=== PATIENT | female | born 2000 | race Caucasian/White ===

== ENCOUNTER → 2020-06-26 17:44 | Outpatient (CLI) | payer OTHER, SELFPAY ==
[2019-12-27 12:47] VITALS: BMI 29.6
== END ==
PROVIDERS: PCP Family Medicine; Referring Provider Family Medicine; Visit Provider Family Medicine
DX: Z20.828 Contact with and (suspected) exposure to other viral communicable diseases (principal)
CPT/HCPCS: 87635; 94799; U0003

== ENCOUNTER → 2022-05-27 | Outpatient (CLI) | payer OTHER, SELFPAY ==
[2022-05-28 22:06] LABS: Chlamydia By Nucleic Acid AMP Negative (Negative)
[2022-05-29 10:44] LABS: Gonococcus By Nucleic Acid AMP Negative (Negative)
[2022-05-29 12:26] LABS: HPV Reflexed? NOT INDICATED
== END | disposition home or self-care (01) ==
PROVIDERS: PCP Family Medicine; Referring Provider Nurse Practitioner Women's Health; Visit Provider Nurse Practitioner Women's Health
DX: Z12.4 Encounter for screening for malignant neoplasm of cervix (principal); Z11.3 Encounter for screening for infections with a predominantly sexual mode of transmission
CPT/HCPCS: 87491; 87591; 88175; G0145

== ENCOUNTER → 2022-10-31 | Outpatient (CLI) | payer OTHER, SELFPAY ==
--- NOTE | 2022-10-31 15:27 | US_ITS ---
INDICATION: DYSMENORRHea EXAMINATION: Ultrasound US Pelvis Non OB Complete With Transvaginal Imaging TECHNIQUE: Transabdominal and transvaginal pelvic ultrasound was performed. Grayscale, spectral waveform, and color flow Doppler evaluation of the adnexa. COMPARISON: None. FINDINGS: UTERUS: Anteverted. The uterus measures 7.7 x 4.8 x 2.5 cm. There is no uterine mass. The endometrial stripe measures 9 mm in AP diameter which is within normal limits. RIGHT OVARY: Measures 2.8 x 2.1 x 1.3 cm. Non-enlarged, normal echogenicity. There is normal arterial inflow and venous outflow present in the right ovary. LEFT OVARY: Measures 5.2 x 3.9 x 3.4 cm. Non-enlarged, normal echogenicity. There is normal arterial inflow and venous outflow present in the left ovary. Well-circumscribed anechoic 3.5 cm cyst in the left ovary. FREE FLUID: None. US/Pelvic (Non ) IMPRESSION: Normal pelvic ultrasound. Electronically Signed: Ryan Valladares MD at 16:45 EST ,
== END | disposition home or self-care (01) ==
LOC: US 15:26
PROVIDERS: PCP Family Medicine; Referring Provider Nurse Practitioner Women's Health; Visit Provider Nurse Practitioner Women's Health
DX: N94.6 Dysmenorrhea, unspecified (principal)
CPT/HCPCS: 76830; 76856

== ENCOUNTER → 2022-11-14 | Outpatient (CLI) | payer OTHER, SELFPAY | END | disposition home or self-care (01) | LOC: LAB 10:01 | PROVIDERS: PCP Family Medicine; Referring Provider Nurse Practitioner Women's Health; Visit Provider Nurse Practitioner Women's Health | DX: Z31.41 Encounter for fertility testing (principal) | CPT/HCPCS: 36415 ==

== ENCOUNTER → 2022-12-02 | Outpatient (CLI) | payer OTHER, SELFPAY ==
[2022-12-02 11:07] LABS: Progesterone Level 2.01 ng/mL (See Comment)
== END | disposition home or self-care (01) ==
LOC: LAB 09:24
PROVIDERS: PCP Family Medicine; Referring Provider Nurse Practitioner Women's Health; Visit Provider Nurse Practitioner Women's Health
DX: N97.0 Female infertility associated with anovulation (principal)
CPT/HCPCS: 36415; 84144

== ENCOUNTER → 2023-01-16 | Outpatient (CLI) | payer OTHER, SELFPAY ==
[2023-01-16 15:50] LABS: ALB/GLOB Ratio 1.2 RATIO (0.9-2.4); AST(SGOT) 22 U/L (15-37); Alanine Aminotransfer ALT/SGPT 29 U/L (13-56); Alkaline Phosphatase 122 U/L (45-117); Anion Gap 8 (5-15); BUN 13 mg/dL (7-18); BUN/Creat Ratio 15.7 RATIO (10-20); Calcium,Total 9.4 mg/dL (8.5-10.1); Chloride 106 mmol/L (98-107); Creatinine, Serum 0.83 mg/dL (0.55-1.02); EST Glomerular Filtration Rate 91 mL/min (>60); Est Glom Filt Rate - Afr Amer 110 mL/min (>60); Globulin 3.4 g/dL (2.2-4.2); Glucose 68 mg/dL (74-106); Potassium 3.8 mmol/L (3.5-5.1); Protein, Total 7.4 g/dL (6.4-8.2); Sodium Level 140 mmol/L (136-145)
[2023-01-16 16:10] LABS: HIV - WCH Non-Reactive (Nonreactive); Hepatitis B Surface Antigen Non-Reactive (Nonreactive); Rubella IgG Reactive (Nonreactive); Syphilis Antibodies Non-reactive
[2023-01-16 17:15] LABS: Chlamydia Trachomatis by PCR Negative (Negative); Neisserai gonorrhoeae by PCR Negative (Negative); Probe Check PASS; Sample Adequacy Control PASS; Specimen Processing Control PASS
[2023-01-27 14:30] LABS: 17-Hydroxyprogesterone 22 ng/dL (.)
== END | disposition home or self-care (01) ==
LOC: LAB 14:21
PROVIDERS: PCP Family Medicine; Referring Provider Obstetrics & Gynecology Reproductive Endocrinology; Visit Provider Obstetrics & Gynecology Reproductive Endocrinology
DX: Z31.41 Encounter for fertility testing (principal); E28.1 Androgen excess; R73.9 Hyperglycemia, unspecified
CPT/HCPCS: 36415; 80053; 82627; 83498; 84403; 84443; 86703; 86762; 86780; 86787; 86803; 86804; 86850; 86900; 86901; 87340; 87491; 87591; 82626

== ENCOUNTER → 2023-01-23 | Outpatient (CLI) | payer OTHER, SELFPAY ==
[2023-01-23 08:36] LABS: Glucose 75GTT - Fasting 110 mg/dL (70-99)
[2023-01-23 08:41] LABS: Glucose 75GTT - 30 minutes 225 mg/dL (100-160)
[2023-01-23 08:46] LABS: Insulin 75GTT - 30 MIN 223.5 mU/L (Not Estab.)
[2023-01-23 08:46] LABS: Insulin 75GTT - Fasting 23.9 mU/L (2.6-37.6)
[2023-01-23 09:39] LABS: Glucose 75GTT - 60 minutes 124 mg/dL (100-160)
[2023-01-23 09:47] LABS: Insulin 75GTT - 60 min 128.6 mU/L (Not Estab)
[2023-01-23 10:10] LABS: Glucose 75GTT - 120 minutes 110 mg/dL (70-140)
[2023-01-23 10:18] LABS: Insulin 75GTT - 120 min 80.8 mU/L (Not Estab.)
== END | disposition home or self-care (01) ==
LOC: LAB 07:05
PROVIDERS: PCP Family Medicine; Referring Provider Obstetrics & Gynecology Reproductive Endocrinology; Visit Provider Obstetrics & Gynecology Reproductive Endocrinology
DX: R73.9 Hyperglycemia, unspecified (principal); E16.8 Other specified disorders of pancreatic internal secretion
CPT/HCPCS: 36415; 82951; 82952; 83525

== ENCOUNTER → 2023-12-04 | Outpatient (CLI) | payer BC, SELFPAY ==
[2023-12-04 09:37] LABS: Insulin 24.8 mU/L (2.6-37.6)
[2023-12-04 09:47] LABS: ALB/GLOB Ratio 1.1 RATIO (0.9-2.4); AST(SGOT) 17 U/L (15-37); Alanine Aminotransfer ALT/SGPT 31 U/L (13-56); Albumin, Serum 3.9 g/dL (3.2-5.0); Alkaline Phosphatase 134 U/L (45-117); Anion Gap 5 (5-15); BUN 11 mg/dL (7-18); BUN/Creat Ratio 13.8 RATIO (10-20); Calcium,Total 9.6 mg/dL (8.5-10.1); Chloride 108 mmol/L (98-107); EST Glomerular Filtration Rate 94 mL/min (>60); Est Glom Filt Rate - Afr Amer 113 mL/min (>60); Free T3 2.6 pg/mL (2.18-3.98); Globulin 3.7 g/dL (2.2-4.2); Glucose 101 mg/dL (74-106); Potassium 3.9 mmol/L (3.5-5.1); Protein, Total 7.6 g/dL (6.4-8.2); Sodium Level 136 mmol/L (136-145)
[2023-12-04 10:48] LABS: Hemoglobin A1c 5.1 % (3.8-5.6)
== END | disposition home or self-care (01) ==
PROVIDERS: PCP Family Medicine; Referring Provider Family Medicine; Visit Provider Family Medicine
DX: E03.9 Hypothyroidism, unspecified (principal); E88.819 Insulin resistance, unspecified; E28.2 Polycystic ovarian syndrome
CPT/HCPCS: 36415; 80053; 83036; 83525; 84402; 84403; 84439; 84443; 84481; 86376; 86800

== ENCOUNTER → 2024-02-10 | Outpatient (CLI) | payer BC, SELFPAY ==
[2024-02-10 13:57] LABS: hCG Titer Quant., Serum 42 mIU/mL (1-3)
== END | disposition home or self-care (01) ==
LOC: LAB 07:06
PROVIDERS: PCP Family Medicine; Referring Provider Nurse Practitioner Women's Health; Visit Provider Nurse Practitioner Women's Health
DX: Z34.90 Encounter for supervision of normal pregnancy, unspecified, unspecified trimester (principal)
CPT/HCPCS: 36415; 84702

== ENCOUNTER → 2024-02-12 | Outpatient (CLI) | payer BC, SELFPAY ==
[2024-02-12 08:54] LABS: hCG Titer Quant., Serum 74 mIU/mL (1-3)
== END | disposition home or self-care (01) ==
LOC: LAB 07:41
PROVIDERS: PCP Family Medicine; Referring Provider Nurse Practitioner Women's Health; Visit Provider Nurse Practitioner Women's Health
DX: Z34.90 Encounter for supervision of normal pregnancy, unspecified, unspecified trimester (principal)
CPT/HCPCS: 36415; 84702

== ENCOUNTER → 2024-02-16 | Outpatient (CLI) | payer BC, SELFPAY ==
[2024-02-16 09:23] LABS: hCG Titer Quant., Serum 320 mIU/mL (1-3)
== END | disposition home or self-care (01) ==
LOC: LAB 07:26
PROVIDERS: PCP Family Medicine; Referring Provider Nurse Practitioner Women's Health; Visit Provider Nurse Practitioner Women's Health
DX: Z34.90 Encounter for supervision of normal pregnancy, unspecified, unspecified trimester (principal)
CPT/HCPCS: 36415; 84702

== ENCOUNTER → 2024-02-23 | Outpatient (CLI) | payer BC, SELFPAY ==
[2024-02-23 09:24] LABS: hCG Titer Quant., Serum 4238 mIU/mL (1-3)
== END | disposition home or self-care (01) ==
PROVIDERS: PCP Family Medicine; Referring Provider Nurse Practitioner Women's Health; Visit Provider Nurse Practitioner Women's Health
DX: O36.80X0 Pregnancy with inconclusive fetal viability, not applicable or unspecified (principal); Z3A.00 Weeks of gestation of pregnancy not specified
CPT/HCPCS: 36415; 84702

== ENCOUNTER 2024-03-05 10:37 | Emergency (ER) | payer BC, SELFPAY ==
[2024-03-05 10:38] VITALS: BP 160/101; PULSE 83; RESP 14; O2SAT 97
[2024-03-05 10:39] VITALS: BP 159/100; PULSE 87; RESP 14; TEMP 36.1; O2SAT 100; BMI 47.2
--- NOTE | 2024-03-05 10:58 | US_ITS ---
STUDY: FIRST TRIMESTER OBSTETRICAL ULTRASOUND REASON FOR EXAM: Female, 23 years old L pelvic pain, vag bleeding LMP: TECHNIQUE: Transvaginal TECHNICAL QUALITY: Adequate. PRIOR ULTRASOUND: None. FINDINGS: There is visualization of a single gestational sac in a normal intrauterine position. The mean sac diameter (MSD) measures 1.66 cm, indicating an estimated gestational age (EGA) of 6 weeks, 4 days. The gestational sac shape is within normal limits. There is a visualized yolk sac. The yolk sac measures 2.9 mm. The placenta is non-visualized. There is visualization of a live embryo. The crown-rump length (CRL) measures 8.5 mm, indicating an estimated gestational age (EGA) of 6 weeks, 6 days. There is demonstrated cardiac activity with a heart rate of 144 bpm. The estimated gestation age (EGA) by LMP is 7 weeks, 6 days. The estimated date of delivery (ANTHONY) by LMP is October 16, 2024. The estimated gestation age (EGA) by US is 6 weeks, 5 days. The estimated date of delivery (ANTHONY) by US is October 24, 2024. The uterus measures 8.8 x 5.1 x 4.4 cm. There is no demonstrated uterine fibroid. The cervix is closed. Normal right ovary is not visualized. There is no adnexal mass. The left ovary measures 3.1 x 2.2 x 1.8 cm. There is a cyst measuring 1.9 x 2 x 1.9 cm likely corpus luteum. There is no visualized left adnexal mass or complex lesion. There is minimal fluid in the cul de sac. US/Transvaginal w/Preg US IMPRESSION: Viable intrauterine gestation approximately 7 weeks gestational age. Small left ovarian cyst likely corpus luteum Electronically Signed: Vivek Lamar MD at 16:28 EDT Reading Location ID and State: [id number] / [place] Tel , Service support ,
--- NOTE | 2024-03-05 10:59 | EDS_ITS ---
HPI HPI - Female History of Present Illness Chief Complaint: Vag Bld, Preg Informant: patient Bleeding Issue: Positive for Vaginal bleeding Onset: Today Current Severity: Spotting Associated Symptoms Associated Symptoms: Negative for Dysuria, Frequency or Urgency Last known menstrual period: 01/10/24 Test: Positive P: 0 Narrative Narrative: 23-year-old female early in started having left pelvic cramping and vaginal spotting today. No syncope, fevers or chills, urinary symptoms, or other symptoms. No recent injuries. Has not had an ultrasound yet. She did have some left-sided pelvic cramping several weeks ago, she saw Candice Stewart in OB who did a couple of hCG measurements and then the cramping went away according to the patient. PFSH PFSH Medical History Bloody stool External hemorrhoid no medical history Home Medications cetirizine 10 mg tablet (Zyrtec) 10 mg PO DAILY 12/27/19 [History Last Taken Unknown] sertraline 50 mg tablet (Zoloft) 75 mg PO DAILY 05/27/22 [History Last Taken Unknown] Allergy/AdvReac Type Severity Reaction Status Date / Time No Known Allergies Allergy Verified 03/05/24 10:38 Family History Other Anxiety Breast cancer Depression Surgical History History of eye surgery History of tonsillectomy Social History household members: spouse current occupational status: employed current occupation: [employer] Smoking Status: Never smoker alcohol intake: current alcohol intake frequency: a few times a week substance use type: does not use what type of physical activity do you participate in: walking frequency: 1-2 times per week seatbelt use: always do you feel safe at home: Yes additional social history: - [place] PEÑA ROS ED Constitutional Constitutional ED: Denies chills or fever(s) Eyes Eyes: Denies change in vision or diplopia ENT ENT ED: Denies rhinorrhea or sore throat Cardiovascular Cardiovascular: Denies chest pain or palpitations Respiratory/Chest Respiratory/Chest: Denies cough or dyspnea Gastrointestinal Gastrointestinal: Reports abdominal pain; Denies diarrhea, nausea or vomiting Genitourinary Genitourinary ED: Reports as per HPI; Denies dysuria or hematuria Musculoskeletal Musculoskeletal: Denies back pain or neck pain Integumentary Denies abscess or rash Neurologic Neurologic: Denies headache(s), paresthesias or weakness Psychiatric Psychiatric: Denies anxiety or suicidal thoughts EXAM Physical Exam Const Vital Signs: 03/05/24 10:38 03/05/24 10:39 03/05/24 12:38 Temperature 97 F L 98.5 F Temperature Source Temporal Temporal Pulse Rate 83 87 64 Respiratory Rate 14 14 18 Blood Pressure 160/101 H 159/100 H 128/76 H Blood Pressure Mean 120 119 93 Pulse Ox 97 100 98 Oxygen Delivery Method Room Air Room Air Room Air 03/05/24 14:00 03/05/24 15:30 Temperature 98.2 F Temperature Source Pulse Rate 81 79 Respiratory Rate 14 17 Blood Pressure 131/76 H 122/81 H Blood Pressure Mean 94 94 Pulse Ox 98 97 Oxygen Delivery Method Room Air Positive well nourished and well developed General Appearance ED: well developed and NAD HEENT Reports moist mucous membranes normocephalic and atraumatic Eyes PERRL and EOMs intact bilaterally Neck full ROM and supple Resp normal respiratory effort and clear to auscultation bilaterally Cardio regular rate, regular rhythm and no murmurs GI non-distended GI Narrative: Mildly tender left lower quadrant. No guarding or rebound. Auscultation: normoactive bowel sounds Palpation: soft Back/Spine no CVA tenderness General Back: other FROM Extremity normal to inspection General Extremety ED: Negative for edema, pulses abnormal or tenderness General Extremity: Negative for edema or pulses abnormal Neuro oriented x3, CN's II-XII intact bilaterally and no sensory deficits noted Sensorium / Orientation: awake and alert Motor Exam: strength 5/5 throughout Skin no rashes or lesions noted and no wounds MDM MDM MDM Narrative Medical decision making narrative: Reviewing old records, patient has a previously documented blood type O+, so RhoGAM not indicated. I did a bedside ultrasound. It appears that her uterus is off to the left. However, there is artifact from the edge of the bladder in this area, so I am not able to definitively see this gestational sac or pole. For this reason a quantitative hCG and an official transvaginal ultrasound will be obtained. Quantitative hCG is almost 32,000, transvaginal ultrasound shows single live intrauterine heart tones 144, measuring consistent with dates. Reassured, given appropriate discharge instructions to follow-up with her OB. She was offered Tylenol and declined. History & Record Review Additional record(s) reviewed:: Prior labs Lab Data Attestation: I reviewed the patient's lab results. Labs: Laboratory Results - last 24 hr 03/05/24 11:05 HCG, Quant [id number] H Radiography Diagnostic Testing: Clinical Impression(s) from Imaging Studies Obstetrics Ultrasound 03/05/24 10:58 IMPRESSION: Viable intrauterine gestation approximately 7 weeks gestational age. Small left ovarian cyst likely corpus luteum Electronically Signed: Vivek Lamar MD at 16:28 EDT , Discharge Plan Triage Chief Complaint: Vag Bld, Preg ED Provider: Alban Morrissey Dx/Rx/DC Orders Clinical Impression: , threatened, antepartum Instructions: Miscarriage Threatened Prescriptions: No Action cetirizine [Zyrtec] 10 mg tablet 10 mg PO DAILY sertraline [Zoloft] 50 mg tablet 75 mg PO DAILY Stand Alone Forms: ED Work / School Excuse Primary Care Provider: Meagan Whalen Referrals: eMagan Whalen DO [Primary Care Provider] - Candice Stewart NP, [facility] [Med Staff - Adv Practice Prof] - As soon as possible (call for available appt) Disposition Disposition: Home, Self Care Discharge Date/Time: 03/05/24 15:30
[2024-03-05 11:52] LABS: hCG Titer Quant., Serum 31565 mIU/mL (1-3)
[2024-03-05 12:38] VITALS: BP 128/76; PULSE 64; RESP 18; TEMP 36.9; O2SAT 98
[2024-03-05 14:00] VITALS: BP 131/76; PULSE 81; RESP 14; O2SAT 98
[2024-03-05 15:30] VITALS: BP 122/81; PULSE 79; RESP 17; TEMP 36.8; O2SAT 97
== END 2024-03-05 15:30 | disposition home or self-care (01) ==
PROVIDERS: Emergency Provider Emergency Medicine; PCP Family Medicine; Visit Provider Emergency Medicine
DX: O20.0 Threatened abortion (principal); Z3A.01 Less than 8 weeks gestation of pregnancy
CPT/HCPCS: 76817; 84702; 99282; A4216

== ENCOUNTER → 2024-03-15 | Outpatient (CLI) | payer BC, SELFPAY ==
[2024-03-18 06:09] LABS: Chlamydia By Nucleic Acid AMP Negative (Negative); Gonococcus By Nucleic Acid AMP Negative (Negative)
== END | disposition home or self-care (01) ==
LOC: LABSPEC 14:58
PROVIDERS: PCP Family Medicine; Referring Provider Advanced Practice Midwife; Visit Provider Advanced Practice Midwife
DX: O99.210 Obesity complicating pregnancy, unspecified trimester (principal); E66.01 Morbid (severe) obesity due to excess calories; Z68.41 Body mass index [BMI] 40.0-44.9, adult; Z3A.00 Weeks of gestation of pregnancy not specified
CPT/HCPCS: 87086; 87088; 87491; 87591

== ENCOUNTER → 2024-03-26 | Outpatient (CLI) | payer BC, SELFPAY | END | disposition home or self-care (01) | LOC: LAB 10:43 | PROVIDERS: PCP Family Medicine; Visit Provider Advanced Practice Midwife | DX: Z34.81 Encounter for supervision of other normal pregnancy, first trimester (principal) | CPT/HCPCS: 36415 ==

== ENCOUNTER → 2024-04-09 | Outpatient (CLI) | payer BC, SELFPAY ==
[2024-04-09 11:53] LABS: Absolute Lymphocyte Count 1.22 X10^3/uL (0.83-4.51); Absolute Neutrophil Count 5.4 X10^3/uL (2.0-7.7); Basophil# 0.02 X10^3/uL; Basophil% 0.3 % (0-1); Eosinophil# 0.04 X10^3/uL; Eosinophils% 0.6 % (0-5); Hematocrit 37.2 % (37-47); Hemoglobin 12.6 g/dL (12.0-15.0); Lymphocyte # 1.22 X10^3/ul (0.83-4.51); Lymphocyte % 17.6 % (19-41); Mean Corp Hgb Conc 33.9 g/dL (32-36); Mean Corpuscular Hgb 29.3 pg (27.0-32.0); Mean Corpuscular Volume 86.5 fL (81-99); Mean Platelet Vol. 10.2 fl (6.2-12.0); Monocyte# 0.26 X10^3/uL; Monocyte% 3.8 % (0-10); NRBC Flagged by Analyzer 0 % (0-5); Neutrophil # 5.36 X10^3/uL (2.7-7.7); Neutrophil % 77.3 % (47-70); Platelet Count 295 K/mm3 (150-450); RBC Distribution Width CV 12.7 % (11.6-14.6); RBC Distribution Width SD 39.5 fl (35.1-43.9); White Blood Count 6.9 K/mm3 (4.4-11.0)
[2024-04-09 12:10] LABS: Glucose Challenge Gest 1H 50g 174 mg/dL (70-140)
[2024-04-09 12:52] LABS: HIV - WCH Non-Reactive (Nonreactive); Hepatitis B Surface Antigen Non-Reactive (Nonreactive); Hepatitis C Antibody Non-Reactive (Nonreactive); Rubella IgG Reactive (Nonreactive); Syphilis Antibodies Non-reactive
== END | disposition home or self-care (01) ==
LOC: LAB 10:21
PROVIDERS: PCP Family Medicine; Referring Provider Advanced Practice Midwife; Visit Provider Advanced Practice Midwife
DX: O99.210 Obesity complicating pregnancy, unspecified trimester (principal); E66.01 Morbid (severe) obesity due to excess calories; Z68.41 Body mass index [BMI] 40.0-44.9, adult; Z3A.00 Weeks of gestation of pregnancy not specified
CPT/HCPCS: 36415; 82950; 83036; 85025; 86703; 86762; 86780; 86803; 86850; 86900; 86901; 87340

== ENCOUNTER → 2024-04-16 | Outpatient (CLI) | payer BC, SELFPAY ==
[2024-04-16 08:29] LABS: Glucose GTT-Gestation. Fasting 98 mg/dL (<105)
[2024-04-16 09:13] LABS: Glucose GTT-Gestational 1 Hr 118 mg/dL (<190)
[2024-04-16 10:08] LABS: Glucose GTT-Gestational 2 Hr 97 mg/dL (<165)
[2024-04-16 11:22] LABS: Glucose GTT-Gestational 3 Hr 62 L (<145)
== END | disposition home or self-care (01) ==
PROVIDERS: PCP Family Medicine; Referring Provider Advanced Practice Midwife; Visit Provider Advanced Practice Midwife
DX: O99.810 Abnormal glucose complicating pregnancy (principal); Z3A.00 Weeks of gestation of pregnancy not specified
CPT/HCPCS: 82951; 82952

== ENCOUNTER → 2024-05-21 | Outpatient (CLI) | payer BC, SELFPAY | END | disposition home or self-care (01) | LOC: LABSPEC 16:38 | PROVIDERS: PCP Family Medicine; Referring Provider Registered Nurse; Visit Provider Registered Nurse | DX: O99.891 Other specified diseases and conditions complicating pregnancy (principal); R30.0 Dysuria; Z3A.18 18 weeks gestation of pregnancy | CPT/HCPCS: 87077; 87086; 87088; 87186 ==

== ENCOUNTER → 2024-05-31 | Outpatient (CLI) | payer BC, SELFPAY | END | disposition home or self-care (01) | PROVIDERS: PCP Family Medicine | DX: O28.0 Abnormal hematological finding on antenatal screening of mother (principal); Z36.3 Encounter for antenatal screening for malformations; Z3A.00 Weeks of gestation of pregnancy not specified | CPT/HCPCS: 36415 ==

== ENCOUNTER → 2024-07-28 | Outpatient (CLI) | payer BC, SELFPAY ==
[2024-07-28 09:40] LABS: Bedside Glucose 93 mg/dL (74-106)
[2024-07-28 10:15] LABS: Glucose GTT-Gestation. Fasting 96 mg/dL (<105)
[2024-07-28 10:56] LABS: Absolute Lymphocyte Count 1.31 X10^3/uL (0.83-4.51); Absolute Neutrophil Count 5.9 X10^3/uL (2.0-7.7); Basophil# 0.03 X10^3/uL; Basophil% 0.4 % (0-1); Eosinophil# 0.04 X10^3/uL; Eosinophils% 0.5 % (0-5); Hematocrit 34.2 % (37-47); Hemoglobin 11.8 g/dL (12.0-15.0); Lymphocyte # 1.31 X10^3/ul (0.83-4.51); Lymphocyte % 16.8 % (19-41); Mean Corp Hgb Conc 34.5 g/dL (32-36); Mean Corpuscular Hgb 30.6 pg (27.0-32.0); Mean Corpuscular Volume 88.6 fL (81-99); Mean Platelet Vol. 10.1 fl (6.2-12.0); Monocyte# 0.43 X10^3/uL; Monocyte% 5.5 % (0-10); NRBC Flagged by Analyzer 0 % (0-5); Neutrophil % 75.8 % (47-70); Platelet Count 280 K/mm3 (150-450); RBC Distribution Width CV 12.4 % (11.6-14.6); Red Blood Count 3.86 M/mm3 (4.2-5.4); White Blood Count 7.8 K/mm3 (4.4-11.0)
[2024-07-28 11:18] LABS: Glucose GTT-Gestational 1 Hr 132 mg/dL (<190)
[2024-07-28 11:52] LABS: HIV - WCH Non-Reactive (Nonreactive); Syphilis Antibodies Non-reactive
[2024-07-28 12:13] LABS: Glucose GTT-Gestational 2 Hr 110 mg/dL (<165)
[2024-07-28 13:35] LABS: Glucose GTT-Gestational 3 Hr 61 L (<145)
== END | disposition home or self-care (01) ==
LOC: LAB 09:07
PROVIDERS: PCP Family Medicine; Referring Provider Obstetrics & Gynecology; Visit Provider Obstetrics & Gynecology
DX: O09.92 Supervision of high risk pregnancy, unspecified, second trimester (principal); Z3A.00 Weeks of gestation of pregnancy not specified; Z13.1 Encounter for screening for diabetes mellitus
CPT/HCPCS: 36415; 82951; 82952; 82962; 85025; 86703; 86780

== ENCOUNTER → 2024-09-15 | Outpatient (CLI) | payer BC, SELFPAY ==
--- NOTE | 2024-09-15 13:25 | US_ITS ---
STUDY: OBSTETRICAL ULTRASOUND - BIOPHYSICAL PROFILE REASON FOR EXAM: Female, 24 years old well being -- 34 weeks LMP: January 17, 2024. PRIOR ULTRASOUND: None. TECHNIQUE: Transabdominal TECHNICAL QUALITY: Adequate. FINDINGS: There is a single intrauterine fetus. The fetus is in a cephalic presentation. There is demonstrated cardiac activity with a heart rate of 134 bpm. There is a normal amniotic fluid volume. The largest amniotic fluid pocket measures 4.7 cm. The amniotic fluid index (HUY) is 14.6 cm. The placenta is anterior in location and is not low lying. There are Grade 1 placental changes. Age by LMP: 34 weeks, 4 days. ANTHONY by LMP: October 23, 2024. BIOPHYSICAL PROFILE: Breathing Movements (FBM): 2 Gross Body Movements (GBM): 2 Tone (FT): 2 Amniotic Fluid Volume (AFV): 2 TOTAL SCORE: US/Biophysical Prof W/O Non Stres IMPRESSION: Normal biophysical profile of 06/10. Electronically Signed: Cesar Carcamo MD at 14:45 EST ,
== END | disposition home or self-care (01) ==
LOC: US 13:19
PROVIDERS: PCP Family Medicine; Referring Provider Obstetrics & Gynecology; Visit Provider Obstetrics & Gynecology
DX: O99.213 Obesity complicating pregnancy, third trimester (principal); Z3A.34 34 weeks gestation of pregnancy
CPT/HCPCS: 76819

== ENCOUNTER → 2024-09-22 | Outpatient (CLI) | payer BC, SELFPAY ==
--- NOTE | 2024-09-22 12:01 | US_ITS ---
STUDY: OBSTETRICAL ULTRASOUND - BIOPHYSICAL PROFILE REASON FOR EXAM: Female, 24 years old obesity affecting -- BMI 51 LMP: January 17, 2024. PRIOR ULTRASOUND: Comparison is made with prior study dated December 16, 2023. TECHNIQUE: Transabdominal TECHNICAL QUALITY: Adequate. FINDINGS: There is a single intrauterine fetus. The fetus is in a cephalic presentation. There is demonstrated cardiac activity with a heart rate of 158 bpm. There is a normal amniotic fluid volume. The largest amniotic fluid pocket measures 5.8 cm. The amniotic fluid index (HUY) is 16.3 cm. The placenta is anterior in location and is not low lying. There are Grade 2 placental changes. Age by LMP: 35 weeks, 4 days. ANTHONY by LMP: October 24, 2024. BIOPHYSICAL PROFILE: Breathing Movements (FBM): 2 Gross Body Movements (GBM): 2 Tone (FT): 2 Amniotic Fluid Volume (AFV): 2 TOTAL SCORE: 8 / 8 US/Biophysical Prof W/O Non Stres IMPRESSION: Normal biophysical profile of 06/10. Electronically Signed: Cesar Carcamo MD at 13:37 EST ,
== END | disposition home or self-care (01) ==
LOC: US 12:00
PROVIDERS: PCP Family Medicine; Referring Provider Obstetrics & Gynecology; Visit Provider Obstetrics & Gynecology
DX: O99.213 Obesity complicating pregnancy, third trimester (principal); Z3A.35 35 weeks gestation of pregnancy
CPT/HCPCS: 76819

== ENCOUNTER → 2024-10-05 | Outpatient (CLI) | payer BC, SELFPAY ==
--- NOTE | 2024-10-05 08:09 | US_ITS ---
EXAM: US BIOPHYSICAL PROFILE WITHOUT NON-STRESS TESTING CLINICAL INDICATION: OBESITY AFFECTING BMI 51 TECHNIQUE: Real-time ultrasound of the maternal pelvis for biophysical profile evaluation with image documentation. COMPARISON: 09/22/2024 FINDINGS: BREATHING MOVEMENTS: Present. Score 2/2. GROSS BODY MOVEMENTS: Present. Score 2/2. TONE: Present. Score 2/2. QUALITATIVE AMNIOTIC FLUID VOLUME: Amniotic fluid volume is 13.7 cm with a large vertical pocket of 6.1 cm. FETUS: Single viable IUP. HEART RATE: heart rate: 132 bpm. PRESENTATION: Cephalic presentation. PLACENTA: Anterior placenta. US/Biophysical Prof W/O Non Stres IMPRESSION: No acute findings. Normal biophysical profile with score of 8/8. Electronically Signed: Hugh Chaudhry DO at 0:04 EST ,
== END | disposition home or self-care (01) ==
PROVIDERS: PCP Family Medicine; Referring Provider Obstetrics & Gynecology; Visit Provider Obstetrics & Gynecology
DX: O99.213 Obesity complicating pregnancy, third trimester (principal); Z3A.36 36 weeks gestation of pregnancy
CPT/HCPCS: 76819

== ENCOUNTER 2024-10-11 15:38 | Inpatient (IN) | payer BC, SELFPAY ==
[2024-10-11] VITALS (43 sets, daily range): BP systolic 128–152; BP diastolic 61–95; PULSE 71–180; RESP 14–16; TEMP 36.1–37; O2SAT 83–99; BMI 53.9
[2024-10-11] MEDS: Lactated Ringers 1,000 ML 50 ML IV (16:15)
[2024-10-11 16:19] LABS: Absolute Lymphocyte Count 1.55 X10^3/uL (0.83-4.51); Absolute Neutrophil Count 5.6 X10^3/uL (2.0-7.7); Basophil# 0.03 X10^3/uL; Basophil% 0.4 % (0-1); Eosinophil# 0.03 X10^3/uL; Eosinophils% 0.4 % (0-5); Hematocrit 37.4 % (37-47); Lymphocyte # 1.55 X10^3/ul (0.83-4.51); Lymphocyte % 19.7 % (19-41); Mean Corp Hgb Conc 34.8 g/dL (32-36); Mean Corpuscular Hgb 30.2 pg (27.0-32.0); Mean Platelet Vol. 10.8 fl (6.2-12.0); Monocyte# 0.65 X10^3/uL; Monocyte% 8.3 % (0-10); NRBC Flagged by Analyzer 0 % (0-5); Neutrophil # 5.56 X10^3/uL (2.7-7.7); Neutrophil % 70.6 % (47-70); Platelet Count 290 K/mm3 (150-450); RBC Distribution Width CV 13.1 % (11.6-14.6); RBC Distribution Width SD 40.2 fl (35.1-43.9); White Blood Count 7.9 K/mm3 (4.4-11.0)
--- NOTE | 2024-10-11 16:29 | HP.PCM.OB_ITS ---
HPI - General General Date of Admission: 10/11/24 Date of Service: 10/11/24 HPI Narrative RUSLAN ERICKSON, is a 24 F 38.2 weeks who presents to unit from office for induction due to Pre eclampsia. Maternal Data Information ANTHONY Calculator Estimated Delivery Date Method Current WG Current Estimate 10/23/24 Ultrasound #1 38w 2d Other Estimates 10/16/24 LMP (Certain) 39w 2d Final ANTHONY: 10/23/24 Final ANTHONY Source: US >20 weeks Gestational age: 38.2 weeks PFS PFS Medical History Infertility Anovulation Dysfunction of both eustachian tubes Dysmenorrhea Bloody stool External hemorrhoid Home Medications ?Medication ?Instructions ?Recorded ?Last Taken ?Type cetirizine 10 mg tablet (Zyrtec) 10 mg PO DAILY allergies 12/27/19 10/11/24 09:00 History sertraline 50 mg tablet (Zoloft) 75 mg PO DAILY depression 05/27/22 10/11/24 09:00 History fluticasone propionate 50 1 spray intranasal DAILY allergies 03/12/24 10/11/24 09:00 History mcg/actuation nasal spray,suspension multivitamin no.47-iron fum 27 1 cap PO pegnancy 03/12/24 10/10/24 17:00 History mg-folate no.1 1 mg-dha 300 mg capsule (PNV-DHA) ondansetron 4 mg disintegrating 4 mg PO Q4H PRN nausea and 03/24/24 Unknown Rx tablet vomiting #60 tabs Allergy/AdvReac Type Severity Reaction Status Date / Time No Known Allergies Allergy Verified 10/11/24 16:00 Family History Grandmother Breast cancer, Onset Age: 60 paternal Grandmother Anxiety maternal Depression maternal Mother Anxiety Depression Surgical History [place] teeth extracted History of eye surgery History of tonsillectomy Social History adopted: No household members: spouse current occupational status: employed current occupation: [employer] current occupational exposures/hazards: No pets and animals: Yes pets and animals: dog(s) history of recent travel: No sexually active: Yes Smoking Status: Never smoker alcohol intake: current alcohol intake frequency: a few times a month details: not while substance use type: does not use diet: gluten free well-balanced diet: daily or most days caffeine: Yes Type: coffee Number of servings: 1 eating out: 1-3 times/week during the past year weight has: decreased > 10 lbs what type of physical activity do you participate in: walking, yoga and other details: pilates frequency: 3-4 times per week duration: 45-60 minutes/day elio/orthodox: [employer] seatbelt use: always do you feel safe at home: Yes additional social history: - Ayo History 1 Elective abortions Hx Para 0 Spontaneous abortions Hx # Term Pregnancies Ectopic pregnancies Hx # Pregnancies Multiple births # of living children Visit Details Expected Delivery Route/Plan Labor Preferences- CB/BF classes: planning labor support person: ayo labor intervention preferences: pain management options preferred: epidural open to whatever cut cord/dad catch: yes : [] PP control planned: NFP discussed possible routes of delivery and associated risks: [] special requests: [] Plans Covid status: [] Flu vaccine: given Tdap vaccine: given Rhogam: na LARC form signed: declined movement and labor precautions reviewed. Problem list reviewed and updated with the most current plan of care details and appropriate orders placed. Relevant counseling for the gestational age provided. Continue routine care and follow up unless otherwise noted in visit notes/problem list details OB Flowsheet Initial Weight: Not Recorded Date -?-?-?-?-?-?-?-?-?-?-?-?- EGA Weight BP Urine Prot -?-?-?-?-?-?-?-?-?-?-?-?- Glucose FHR FuHt Pres Dilation -?--?-?-?-?-?-?-?-?-?-?-?- Effaced St Visit Note 03/15/24 -?-?-?-?-?-?-?-?-?-?-?-?- 8w 2d 251 lb 2 oz 114/78 -?-?-?-?-?-?-?-?-?-?-?-?- 168 -?-?-?-?-?-?-?-?-?-?-?-?- KW- CRL cons wit h dates. Spont ! accepts NIPT had carrier screening through [facility]. 04/13/24 -?-?-?-?-?-?-?-?-?-?-?-?- 12w 3d 251 lb 123/78 Negative -?-?-?-?-?-?-?-?-?-?-?-?- Negative 160 -?-?-?-?-?-?-?-?-?-?-?-?- Sm- no vb crmapi ng discussed healthy weight gain 05/10/24 -?-?-?-?-?-?-?-?-?-?-?-?- 16w 2d 247 lb 122/78 Negative -?-?-?-?-?-?-?-?-?-?-?-?- Negative 145 -?-?-?-?-?-?-?-?-?-?-?-?- kw- no vb/crampi ng. US scheduled. 05/21/24 -?-?-?-?-?-?-?-?-?-?-?-?- 17w 6d Trace -?-?-?-?-?-?-?-?-?-?-?--?- Negative -?-?-?-?-?-?-?-?-?-?-?-?- LC- nurse visit only. increased pain with urination. heme/leuks. macrobid started. culture pending. 06/09/24 -?-?-?-?-?-?-?-?-?-?-?-?- 20w 4d 252 lb 2 oz 119/81 Nega tive -?-?-?-?-?-?-?-?-?-?-?-?- Negative 141 -?-?-?-?-?-?-?-?-?-?-?-?- MH-No VB. Nause a resolved. Denies concerns. 07/06/24 -?-?-?-?-?-?-?-?-?-?-?-?- 24w 3d 256 lb 4 oz 128/61 Nega tive -?-?-?-?-?-?-?-?-?-?-?-?- Negative 135 -?-?-?-?-?-?-?-?-?-?-?-?- JV- no lof, vagi nal bleeding, or cramping. + FM. having a girl! planning to do the 3 hr at 28 weeks. 07/28/24 -?-?-?-?-?-?-?-?-?-?-?-?- 27w 4d 262 lb 137/85 -?-?-?-?-?-?-?-?-?-?-?-?- 140 29 -?-?-?-?-?-?-?-?-?-?-?-?- SM- no vb lof go od fm no regualr ctx 3 hr gtt today 08/11/24 -?-?-?-?-?-?-?-?-?-?-?-?- 29w 4d 261 lb 139/78 Negative -?-?-?-?-?-?-?-?-?-?-?-?- Negative 135 -?-?-?-?-?-?-?-?-?-?-?-?- JV- no lof, vagi nal bleeding, or dec fm. tdap today. encourage RSV to be given at 32 weeks through [facility] unless we get it first. Growth scans at 32 and 36 weeks mary be with MFM. pt received flu vaccine last visit. 08/25/24 -?-?-?-?-?-?-?-?-?-?-?-?- 31w 4d 264 lb 116/72 Negative -?-?-?-?-?-?-?-?-?-?-?-?- Negative 140 34 -?-?-?-?-?-?-?-?-?-?--?-?- SM- no vb lof go od fm no reuglar ctx 09/10/24 -?-?-?-?-?-?-?-?-?-?-?-?- 33w 6d 268 lb 129/82 1+ -?-?-?-?-?-?-?-?-?-?-?-?- Negative 155 -?-?-?-?-?-?-?-?-?-?-?-?- KW- no vb/lof/ct x. good fm. preferences reviewed. no concerns today 09/22/24 -?-?-?-?-?-?-?-?-?-?-?-?- 35w 4d 273 lb 133/92 Negative -?-?-?-?-?-?-?-?-?-?-?-?- Negative 145 -?-?-?-?-?-?-?-?-?-?-?-?- SM- no vb lof go od fm nro egualr ctx 09/29/24 -?-?-?-?-?-?-?-?-?-?-?-?- 36w 4d 274 lb 6 oz 139/83 Nega tive -?-?-?-?-?-?-?-?-?-?-?-?- Negative 140 38 -?-?-?-?-?-?-?-?-?-?-?-?- JV- growth scan 2 days ago was 25th%. bpp is next week. no lof, vaginal bleeding, or dec fm. She is interested in a 39 week IOL. and we talked about risks, benefits- will decide at 38 weeks when we do cervical exam if good candidate. 10/04/24 -?-?-?-?-?-?-?-?-?-?-?-?- 37w 2d 26 lb 4 oz 139/94 Trace -?-?-?-?-?-?-?-?-?-?-?-?- Negative 140 39 -?-?-?-?-?-?-?-?-?-?-?-?- SM- no vb lof go od fm noregular ctx 10/11/24 -?-?-?-?-?-?-?-?-?-?-?-?- 38w 2d 277 lb 8 oz 159/102 156/82 2+ -?-?-?-?-?-?-?-?-?-?-?-?- Negative 140 -?-?-?-?-?-?-?-?-?-?-?-?- SM- sent to [facility] for elevated bps and headache for IOL due to preeclampsia NST FHR Rate Baby A Baseline: 130 Variability:: Moderate Accelerations:: 15 x 15 Decelerations:: None NST Reactive:: Yes FHR Category:: Category I Uterine Activity:: occasional ROS Constitutional Constitutional: Reports headache(s); Denies change in weight, fatigue, fever(s), poor appetite or weakness Eyes Eyes: Denies blurry vision, change in vision, floaters, seeing flashes or spots in vision ENT HEENT: Reports headache(s); Denies dizziness, loss taste/smell or sore throat Cardiovascular Cardiovascular: Denies chest pain, dizziness, dyspnea, irregular heart rhythm, lightheadedness, palpitations or rapid heart rate Respiratory/Chest Respiratory/Chest: Denies change in mental status, chest tightness, cough, dyspnea or breast pain Gastrointestinal Gastrointestinal: Denies anorexia, chewing difficulty, constipation, diarrhea or weight changes Genitourinary Genitourinary: Denies difficulty urinating, dysuria, flank pain, genital pain, urinary frequency or urinary urgency Musculoskeletal Musculoskeletal: Denies back pain, difficulty walking, extremity pain, joint pain, muscle cramps or muscle weakness Integumentary Integumentary: Denies lesions or unusual bruising Neurologic Neurologic: Denies abnormal movements, abnormal speech, dizziness, numbness, seizure-like activity, syncope or weakness Psychiatric Psychiatric: Denies behavioral changes, change in appetite, confusion, depression, homicidal ideation, suicidal ideation or suicidal thoughts Endocrine Endocrinology: Denies excessive sweating, polydipsia or polyuria Hematologic/Lymphatic Hematologic/Lymphatic: Denies anemia Allergic/Immunologic Allergic/Immunologic: Denies itchy eyes, lip swelling, throat swelling, tongue swelling or wheezing Vital Signs Vital Signs Vital Signs: 10/11/24 15:33 10/11/24 15:33 10/11/24 16:28 Pulse Rate 87 73 Blood Pressure 152/95 H BP Systolic 152 BP Diastolic 95 Pulse Ox 10/11/24 16:28 Pulse Rate Blood Pressure BP Systolic BP Diastolic Pulse Ox 97 Weight Weight: 276 lb 6 oz Body Mass Index (BMI) 53.9 Physical Exam Const alert, oriented x3 and no apparent distress General Appearance: cooperative Orientation / Consciousness: awake HEENT normocephalic Neck full ROM Lymph Lymphatic: no lymphadenopathy noted Chest inspection of chest normal Resp normal respiratory effort and normal air movement Effort and Inspection: able to speak in complete sentences and symmetric chest movement GI soft to palpation and non-tender Inspection: gravid Palpation: soft; Negative for tender external exam normal Back/Spine normal to inspection Extremity normal to inspection and full ROM Skin no rashes or lesions noted Psych mental status grossly normal Appearance: grossly normal Speech: normal speech Labs Labs Labs: Blood Type O POSITIVE Antibody Screen NEGATIVE Hct 37.4 % (37-47) Hgb 13.0 g/dL (12.0-15.0) Obstetrics Ultrasound Syphilis Total Ab Non-reactive VZV IgG Antibody Rubella IgG Antibody Reactive (Nonreactive) Hep Bs Antigen Non-Reactive (Nonreactive) Hepatitis C Antibody Non-Reactive (Nonreactive) Chlamydia DNA (CHIKI) Negative (Negative) N.gonorrhoeae DNA (CHIKI) Negative (Negative) HIV 1&2 Antibody Non-Reactive (Nonreactive) Glucose 1 Hr 50 gm 174 mg/dL (70-140) H Gest Glucose Tolerance MG/DL Miscellaneous Test Assessment & Plan (1) Encounter for induction of labor: COMMENT: cytotec PLAN: Patient presents IOL, plan management for with cytotec/benjamin bulb/pitocin/AROM. Pain management: plans epidural. GBS positive-PCN. Management of any complications: see problem list I have reviewed the [facility] and made any clinically relevant updates. Dr Thomas aware of assessment and plan. agrees with above (2) Mild pre-eclampsia affecting third : COMMENT: labs ordered, plan IOL now and evaluation for severe pree (3) Obesity affecting : COMMENT: BMI 47 weekly bpp 34 weeks on growth US q 4 weeks (4) Positive GBS test: COMMENT: in urine, treat in labor (5) Abnormal glucose affecting : COMMENT: passed 3 hour gct fasting was 98 (6) Seasonal allergies: (7) Anxiety and depression: COMMENT: Zoloft-doing well (8) PCOS (polycystic ovarian syndrome): (9) Supervision of high-risk : QUALIFIERS: Trimester: second trimester Qualified Code(s): O09.92 - Supervision of high risk , unspecified, second trimester COMMENT: PRR, , ANTHONY 10/23/[address] [facility], Ayo (10) : QUALIFIERS: Weeks of gestation: 38 weeks Qualified Code(s): Z3A.38 - 38 weeks gestation of COMMENT: elects NIPT- insufficient dna, decline repeat sample. decline c arrier screen. nl anatomy needs fu views NIPT from [facility] low risk (11) Family history of breast cancer: COMMENT: paternal grandmother. Charges/Coding Multi Select Codes Urinary/Genital Urinary/Genital CPT Codes: No Charge
[2024-10-11] MEDS: Magnesium Sulfate 4gm/100mL 2 GM/50 ML IV.SOLN. IV (16:36)
[2024-10-11] MEDS: Labetalol 200 MG Tablet PO (16:41)
[2024-10-11 16:44] LABS: AST(SGOT) 22 U/L (15-37); Alanine Aminotransfer ALT/SGPT 14 U/L (13-56); Creatinine, Serum 0.75 mg/dL (0.55-1.02); EST Glomerular Filtration Rate 100 mL/min (>60); Est Glom Filt Rate - Afr Amer 121 mL/min (>60); Estimated Creatinine Clearance 140.19 ml/min; Uric Acid 6.2 mg/dL (2.6-6.0)
[2024-10-11] MEDS: Magnesium Sulfate 4gm/100mL 4 GM/100 ML IV.SOLN. IV (16:44)
[2024-10-11 17:04] LABS: Syphilis Antibodies Non-reactive
[2024-10-11 17:13] LABS: Protein, Urine (Random) 73.1 mg/dL (<11.9); Protein:Creat Ratio 373 mg/g CRE (0-200)
[2024-10-11] MEDS: Magnesium Sulfate 20 GM/500 ML BAG IV (17:31)
[2024-10-11] MEDS: miSOPROStol 25 MCG TABLET VAGINAL ×2 (18:24→22:42)
[2024-10-11] MEDS: Acetaminophen 500 MG Tablet PO (21:09)
[2024-10-11] MEDS: Penicillin G Pot 5,000,000 UNITS in 0.9% Normal Saline (100mL MB+) 100 ML 150 UNITS IV (21:12)
[2024-10-12] VITALS (83 sets, daily range): BP systolic 111–177; BP diastolic 57–97; PULSE 67–95; RESP 14–19; TEMP 36–36.9; O2SAT 92–100
[2024-10-12] MEDS: Magnesium Sulfate 20 GM/500 ML BAG IV ×3 (01:30→21:36)
[2024-10-12] MEDS: Penicillin G 3,000,000 Units 50 ML 100 UNITS IV ×3 (01:30→21:43)
[2024-10-12] MEDS: Oxytocin 15 Units/NS 250ml 15 UNITS/250 ML IV.SOLN 2 UNITS IV (02:57)
[2024-10-12] MEDS: Labetalol 200 MG Tablet PO ×2 (04:25→16:36)
[2024-10-12] MEDS: LACTATED RINGERS 500 ML 999 ML IV (05:59)
[2024-10-12] MEDS: fentaNYL-bupivacaine (epidural) 100 ML BAG EPIDURAL ×3 (06:34→20:32)
--- NOTE | 2024-10-12 08:49 | PCM.PN.BLA ---
Progress Note arom thick mec current tracing: FHT: 120 min- Moderate variability positive scalp stim intermittent late decelerations category II tracing [place]: q 2-4 Contractions A/P: internals placed, pitocin decreased and then turned off
[2024-10-12] MEDS: Penicillin G 3,000,000 Units 50 ML 150 UNITS IV ×3 (09:17→17:50)
--- NOTE | 2024-10-12 13:29 | PCM.PN.BLA ---
Progress Note decelerations resolved and now pitocin restarted, then prolonged decel occured with recovery, now cat I tracing will restart pitocin
[2024-10-12] MEDS: Ondansetron 4 MG/2 ML Vial IV ×3 (13:56→22:40)
[2024-10-12] MEDS: 0.9% Saline Lock 10 ML Syringe IV (17:56)
[2024-10-12] MEDS: Acetaminophen 500 MG Tablet PO (21:33)
--- NOTE | 2024-10-12 21:54 | PCM.PN.BLA ---
Progress Note cat I tracing reassuring, +2 station, starting to push
--- NOTE | 2024-10-12 21:55 | EX.PCM.OBVAG ---
Assessment & Plan (1) Encounter for induction of labor: COMMENT: cytotec (2) Mild pre-eclampsia affecting third : COMMENT: labs ordered, plan IOL now and evaluation for severe pree (3) Obesity affecting : COMMENT: BMI 47 weekly bpp 34 weeks on growth US q 4 weeks (4) Positive GBS test: COMMENT: in urine, treat in labor (5) Abnormal glucose affecting : COMMENT: passed 3 hour gct fasting was 98 (6) Seasonal allergies: (7) Anxiety and depression: COMMENT: Zoloft-doing well (8) PCOS (polycystic ovarian syndrome): (9) Supervision of high-risk : QUALIFIERS: Trimester: second trimester Qualified Code(s): O09.92 - Supervision of high risk , unspecified, second trimester COMMENT: PRR, , ANTHONY 10/23/24 per [facility] US, [place] (10) : QUALIFIERS: Weeks of gestation: 38 weeks Qualified Code(s): Z3A.38 - 38 weeks gestation of COMMENT: elects NIPT- insufficient dna, decline repeat sample. decline carrier screen. nl anatomy needs fu views NIPT from [facility] low risk (11) Family history of breast cancer: COMMENT: paternal grandmother. (12) Vaginal delivery: COMMENT: IOL severe preeclampsia Ember girl SM 38 Maternal Data Information ANTHONY Calculator Estimated Delivery Date Method Current WG Current Estimate 10/23/24 Ultrasound #1 38w 4d Other Estimates 10/16/24 LMP (Certain) 39w 4d Vaginal Delivery Maternal Presentation Maternal Presentation: see assessment and plan Vaginal Delivery Information Procedure Performed: Spontaneous Vaginal Delivery Surgeon/Practitioner: Debi Mckenna Pre-Procedure Diagnosis: see assessment and plan Post-Procedure Diagnosis: same Type of anesthesia: Epidural Estimated Blood Loss: 400 Findings Description of procedure: Patient began pushing and delivered the head in the KARINE presentation. The head was delivered atraumatically and a tight nuchal cord ?2 was identified and easily reduced over the infant's head. The anterior and posterior shoulders delivered without complication followed by the rest of the infant and the was placed on the maternal abdomen. Delayed cord clamping was employed for approximately 60 seconds. Cord was clamped and cut and gentle traction was applied to the cord and the placenta delivered spontaneously immediately following it was noted to be intact with three-vessel cord. The perineum and vagina were inspected and was noted to have a first -degree laceration that was repaired in the usual fashion with 3-0 vicryl rapide . EBL was 400. Patient and infant tolerated delivery well. Presentation: Vertex Placental Delivery Description: Spontaneous Specimen collected: Yes Description of specimen(s) removed: placenta Museum Service Scheduler application development project manager: No Post Vaginal Deli Medications given after delivery: Other (pitocin) Complication Complications: No Multi Select Codes Urinary/Genital Urinary/Genital CPT Codes: 77349 Vaginal Delivery [facility]
--- NOTE | 2024-10-12 22:06 | DCINST_ITS ---
Discharge Instructions Diet Discharge Diet: No restrictions DC O2, CPAP, BIPAP needs Additional Home O2 Discharge instructions: No Dressing / Incision Discharge Activity: Return to Normal Activity, May Not Drive (while taking na rcotic pain medications.) and May Shower May resume sexual activity in: 4-6 weeks Dressing / Incision Call your doctor if your incision/area has: Continuous Slow Oozing, Sudden Increased Bleeding, Increased Pain/ Swelling, Increased Redness and Foul Smelling Discharge Follow Up Care Please Follow Up With: Debi Mckenna MD When: Call [phone] to make an appointment with your doctor in 6 weeks. If you had elevated blood pressure or 4th degree laceration, you will need to be seen in 2 weeks. Test Results: Test results from this visit will be discussed in further detail at your follow- up appointment, if applicable. Discharge Plan Admission Admit Date/Time: 10/11/24 15:38 Attending Provider: Debi Mckenna Primary Care Provider: Meagan Whalen Discharge Orders/Prescriptions Prescriptions: No Action cetirizine [Zyrtec] 10 mg tablet 10 mg PO DAILY sertraline [Zoloft] 50 mg tablet 75 mg PO DAILY PNV-DHA 27 mg iron-1 mg -300 mg capsule 1 cap PO fluticasone propionate 50 mcg/actuation spray,suspension 1 spray intranasal DAILY Rx Instructions: administer into each nostril ondansetron 4 mg tablet,disintegrating 4 mg PO Q4H PRN (Reason: nausea and vomiting) Qty: 60 2RF Referrals / Follow Up: Meagan Whalen DO [Primary Care Provider] - Disposition Disposition (needs filled in before D/C Order can be placed): Home, Self Care
--- NOTE | 2024-10-12 22:48 | NURSING ---
placed by previous RN, catheter present upon this RN's arrival to unit
[2024-10-12] MEDS: Oxytocin 15 Units/NS 250ml 15 UNITS/250 ML IV.SOLN 83 UNITS IV (23:57)
[2024-10-13] VITALS (41 sets, daily range): BP systolic 90–148; BP diastolic 50–97; PULSE 72–98; RESP 14–20; TEMP 36.1–36.9; O2SAT 92–99
--- NOTE | 2024-10-13 00:28 | PLAC_PTH ---
PATIENT: RUSLAN ERICKSON LOC: WP U#:[id number] AGE/SX: 24/F ROOM: WP010 RE10/11/[address]: Dr. Debi Mckenna MD : 2000 BED: 1 DIS: 10/14/2024 SPEC #: [id number] RECD: 10/13/24 00:47 STATUS: PREET BROWNDanial #: [id number] BROOKE: 10/13/24 00:[address]: Debi Mckenna DEPT: SURGICAL PATHOLOGY RECD BY: Ursula Dailey ENTERED: 10/13/24 07:02 SP TYPE: PLACENTA OTHR DR: DO Tanesha Cohn [facility] Tissues: Placenta, NOS Procedures: Surgery Specimen Level V HEADER OPERATION: Vaginal delivery PRE-OP DIAGNOSIS: Pre-eclampsia TISSUE SUBMITTED: Placenta MICROSCOPIC DIAGNOSIS Placenta: Placental disc - third trimester placenta (398 gm). * Trivascular umbilical cord with no significant pathologic findings. Membranes with no significant pathologic findings. * Focal thrombotic vasculopathy. Focal Ryland-José changes. Focally increased perivillous fibrin deposition. Focal microcalcification. Rare focal villous immaturity. PW. 10/15/2024 MICROSCOPIC DESCRIPTION Slides are reviewed. GROSS DESCRIPTION SPECIMEN: PLACENTA / CLINICAL INFORMATION: A. Weight: 2.66 kg B. Gestational Age:38 weeks C. Sex: Female PLACENTAL WEIGHT (POST FIXATION): 398 gm PLACENTAL DIMENSIONS: 15.0 x 15.0 x 3.0 cm PLACENTAL SHAPE: Usual ovoid PLACENTAL WEIGHT FOR GESTATIONAL AGE: Within 10-99th percentile (over/under percentile) MEMBRANES - Present A. Insertion: Marginal B. Site of rupture from edge: 6.0 cm from edge of placental disc C. Color of membrane: Tompkins-jones D. Abnormalities: None UMBILICAL CORD - Present A. Color: Tompkins-jones B. Insertion: Central C. Length: 45 cm D. Diameter: 1 cm E. Number of vessels: Three F. Abnormalities: A false knot is noted. PLACENTAL DISC - Present A. Color of surface: Tompkins-jones B. surface abnormalities: None C. Maternal cotyledons: Intact with minimal tears D. Attached retro placental clot: No clot E. Cut surface: Dark red and spongy F. Lesions: A light pink area is noted on the placental surface measuring 6.0 x 6.0cm and up to a depth of 2.0cm. G. Separate clot: Absent SECTIONS SUBMITTED: (10 cassettes) 1. Membrane roll 2. Cord, maternal end 3. Cord, end 4. Placental disc, and maternal surfaces, light pink firm area 5. Placental disc, and maternal surfaces, light pink firm area 6. Placental disc, and maternal surfaces 7. Light pink firm area 8. Light pink firm area 9. Other uninvolved area 10. Other uninvolved area SJ. 10/14/2024 TC:5 CPT: 31815
[2024-10-13 00:48] LABS: Pathology Specimen OB SEE PATHOLOGY REPORT
[2024-10-13 02:21] LABS: Absolute Lymphocyte Count 0.87 X10^3/uL (0.83-4.51); Absolute Neutrophil Count 10.2 X10^3/uL (2.0-7.7); Basophil# 0.03 X10^3/uL; Basophil% 0.2 % (0-1); Eosinophil# 0.46 X10^3/uL; Eosinophils% 3.7 % (0-5); Hematocrit 31.5 % (37-47); Hemoglobin 10.8 g/dL (12.0-15.0); Lymphocyte # 0.87 X10^3/ul (0.83-4.51); Mean Corp Hgb Conc 34.3 g/dL (32-36); Mean Corpuscular Volume 87.5 fL (81-99); Mean Platelet Vol. 10.4 fl (6.2-12.0); Monocyte# 0.77 X10^3/uL; Monocyte% 6.2 % (0-10); NRBC Flagged by Analyzer 0 % (0-5); Neutrophil # 10.23 X10^3/uL (2.7-7.7); Neutrophil % 82.5 % (47-70); Platelet Count 223 K/mm3 (150-450); RBC Distribution Width CV 13.2 % (11.6-14.6); RBC Distribution Width SD 41.2 fl (35.1-43.9); White Blood Count 12.4 K/mm3 (4.4-11.0)
[2024-10-13 02:39] LABS: ALB/GLOB Ratio 0.7 RATIO (0.9-2.4); AST(SGOT) 21 U/L (15-37); Alanine Aminotransfer ALT/SGPT 10 U/L (13-56); Albumin, Serum 2.3 g/dL (3.2-5.0); Alkaline Phosphatase 172 U/L (45-117); Anion Gap 8 (5-15); BUN 7 mg/dL (7-18); BUN/Creat Ratio 7.9 RATIO (10-20); Calcium,Total 7.1 mg/dL (8.5-10.1); Chloride 105 mmol/L (98-107); Creatinine, Serum 0.89 mg/dL (0.55-1.02); EST Glomerular Filtration Rate 82 mL/min (>60); Est Glom Filt Rate - Afr Amer 99 mL/min (>60); Estimated Creatinine Clearance 118.14 ml/min; Globulin 3.3 g/dL (2.2-4.2); Glucose 116 mg/dL (74-106); Potassium 4.4 mmol/L (3.5-5.1); Protein, Total 5.6 g/dL (6.4-8.2); Sodium Level 134 mmol/L (136-145)
--- NOTE | 2024-10-13 07:02 | NURSING ---
RN took epidural out at 0240. TIp was intact no concerns at this time
[2024-10-13] MEDS: Magnesium Sulfate 20 GM/500 ML BAG IV ×2 (07:43→17:51)
[2024-10-13] MEDS: Acetaminophen 500 MG Tablet 1000 MG PO ×3 (07:54→21:50)
--- NOTE | 2024-10-13 08:10 | PN.OBGYN_ITS ---
Subjective Subjective Patient doing well without complaints. Tolerating PO. Ambulating and voiding without difficulty. Feeding well. Denies chest pain, shortness of breath, calf pain/swelling, fevers, chills, lightheadedness. She is diuresing often. Objective Data Objective Data Vital Signs: Vital Signs Temp Pulse Resp BP Pulse Ox O2 Del Method 97.0 F L 98 18 130/64 H 98 Room Air 10/13/24 07:56 10/13/24 07:56 10/13/24 07:56 10/13/24 07:56 10/13/24 07:56 10/13/24 07:56 Oxygen Delivery Method Room Air Weight: 276 lb 6 oz Body Mass Index (BMI) 53.9 Intake & Output: Intake and Output for Last 24 Hours 10/11/24 10/12/24 10/13/24 23:59 23:59 23:59 Intake Total 982.5 / 982.5 3723.42 / 3723.42 1650 / 1650 Output Total 550 / 550 2139 / 2139 200 / 200 Balance 432.5 / 432.5 1584.42 / 1584.42 1450 / 1450 Lab / Micro Data 10/13/24 02:07 10/13/24 02:07 Labs: Laboratory Results - last 24 hr 10/13/24 02:07: WBC 12.4 H, RBC 3.60 L, Hgb 10.8 L, Hct 31.5 L, MCV 87.5, MCH 30.0, MCHC 34.3, RDW Std Deviation 41.2, RDW Coeff of Esther 13.2, Plt Count 223, MPV 10.4, Immature Gran % (Auto) 0.400, Neut % (Auto) 82.5 H, Lymph % (Auto) 7.0 L, Stanley % (Auto) 6.2, Eos % (Auto) 3.7, Baso % (Auto) 0.2, Absolute Neuts (auto) 10.2 H, Absolute Lymphs (auto) 0.87, Nucleated RBC % 0, Sodium 134 L, Potassium 4.4, Chloride 105, Carbon Dioxide 21.0, Anion Gap 8, BUN 7, Creatinine 0.89, Estim Creat Clear Calc 118.14, Est GFR (MDRD) Af Amer 99, Est GFR (MDRD) Non-Af 82, BUN/Creatinine Ratio 7.9 L, Glucose 116 H, Calcium 7.1 L, Total Bilirubin 0.50, AST 21, ALT 10 L, Alkaline Phosphatase 172 H, Total Protein 5.6 L, Albumin 2.3 L, Globulin 3.3, Albumin/Globulin Ratio 0.7 L ROS Constitutional Constitutional: Denies chills, fatigue, fever(s), poor appetite or weakness Eyes Eyes: Denies blurry vision, change in vision, seeing flashes or spots in vision ENT HEENT: Denies dizziness, headache(s), loss taste/smell or sore throat Cardiovascular Cardiovascular: Denies chest pain, dizziness, dyspnea, irregular heart rhythm, palpitations or rapid heart rate Respiratory/Chest Respiratory/Chest: Denies chest tightness, cough, dyspnea or breast pain Gastrointestinal Gastrointestinal: Denies abdominal pain, constipation or vomiting Genitourinary Genitourinary: Denies dysuria or flank pain Musculoskeletal Musculoskeletal: Denies difficulty walking, joint pain, limited range of motion or numbness Neurologic Neurologic: Denies abnormal movements, abnormal speech, dizziness, numbness, seizure-like activity or syncope Psychiatric Psychiatric: Denies anxiety, behavioral changes, change in appetite, confusion, depression or suicidal thoughts Physical Exam Const alert, oriented x3 and no apparent distress General Appearance: cooperative and comfortable Resp normal respiratory effort Cardio regular rate GI normal to inspection, nondistended, normoactive bowel sounds GI Narrative: uterus is firm below umbilicus Palpation: soft Back/Spine no CVA tenderness and thoraco-lumbar ROM normal Extremity normal to inspection, no clubbing, cyanosis or edema, no calf tenderness and no pedal edema Psych mental status grossly normal, thought process normal, cooperative, affect normal, speech normal, activity/motor behavior normal, denies homicidal ideation and denies suicidal ideation Assessment & Plan (1) Vaginal delivery: COMMENT: IOL severe preeclampsia Ember girl SM 38 (2) Encounter for induction of labor: COMMENT: cytotec (3) Mild pre-eclampsia affecting third : COMMENT: labs ordered, plan IOL now and evaluation for severe pree (4) Obesity affecting : COMMENT: BMI 47 weekly bpp 34 weeks on growth US q 4 weeks (5) Positive GBS test: COMMENT: in urine, treat in labor (6) Abnormal glucose affecting : COMMENT: passed 3 hour gct fasting was 98 (7) Seasonal allergies: (8) Anxiety and depression: COMMENT: Zoloft-doing well (9) PCOS (polycystic ovarian syndrome): (10) Supervision of high-risk : QUALIFIERS: Trimester: second trimester Qualified Code(s): O09.92 - Supervision of high risk , unspecified, second trimester COMMENT: PRR, , ANTHONY 10/23/24 per [facility] US, [place] (11) : QUALIFIERS: Weeks of gestation: 38 weeks Qualified Code(s): Z 3A.38 - 38 weeks gestation of COMMENT: elects NIPT- insufficient dna, decline repeat sample. decline carrier screen. nl anatomy needs fu views NIPT from [facility] low risk (12) Family history of breast cancer: COMMENT: paternal grandmother. PLAN: Plan s/p PPD #1 1. pre-eclampsia- stable on magnesium for 24 hours. (turn off at 11 pm) 2. breast feeding- support given 3. rh positive 4. rubella immune
[2024-10-13] MEDS: Benzocaine/Lanolin/Aloe Vera 85 GM Spray 1 SPRAY TOPICAL (08:48)
[2024-10-13] MEDS: Sertraline 50 MG Tablet 75 MG PO (10:18)
[2024-10-13] MEDS: Naproxen 500 MG Tablet PO (13:11)
[2024-10-13] MEDS: Labetalol 100 MG Tablet PO (19:07)
[2024-10-14 00:48] VITALS: BP 125/63; PULSE 74; RESP 18; TEMP 36.4; O2SAT 98
[2024-10-14 04:40] VITALS: BP 136/80; PULSE 72; RESP 16; TEMP 36.6; O2SAT 96
[2024-10-14] MEDS: Naproxen 500 MG Tablet PO (04:51)
[2024-10-14] MEDS: Acetaminophen 500 MG Tablet 1000 MG PO (04:51)
[2024-10-14] MEDS: Labetalol 100 MG Tablet PO (06:56)
--- NOTE | 2024-10-14 07:10 | PCM.PN.OB ---
Subjective Subjective Patient doing well without complaints. Tolerating PO. Ambulating and voiding without difficulty. feeding well. Denies chest pain, shortness of breath, calf pain/swelling, fevers, chills, lightheadedness. Objective Data Objective Data Vital Signs: Vital Signs Temp Pulse Resp BP Pulse Ox O2 Del Method 98 F 72 16 136/80 H 96 Room Air 10/14/24 04:40 10/14/24 04:40 10/14/24 04:40 10/14/24 04:40 10/14/24 04:40 10/14/24 04:40 Oxygen Delivery Method Room Air Weight: 276 lb 6 oz Body Mass Index (BMI) 53.9 Intake & Output: Intake and Output for Last 24 Hours 10/12/24 10/13/24 10/14/24 23:59 23:59 23:59 Intake Total 3723.42 / 3723.42 3951.67 / 3951.67 Output Total 2139 / 2139 1550 / 1550 Balance 1584.42 / 1584.42 2401.67 / 2401.67 Lab / Micro Data 10/13/24 02:07 10/13/24 02:07 ROS Constitutional Constitutional: Reports systems reviewed and no addt'l complaints, except as documented Cardiovascular Cardiovascular: Reports systems reviewed and no addt'l complaints, except as documented Respiratory/Chest Respiratory/Chest: Reports systems reviewed and no addt'l complaints, except as documented Gastrointestinal Gastrointestinal: Reports systems reviewed and no addt'l complaints, except as documented Physical Exam Const alert, oriented x3 and no apparent distress HEENT Head and Scalp: atraumatic Resp normal respiratory effort GI soft to palpation and non-tender Bimanual Exam - Vag & Uterus: uterus non-tender Uterus Palpation: uterus fundus firm (below Umbilicus) Assessment & Plan (1) Vaginal delivery: COMMENT: IOL severe preeclampsia Ember girl SM 38 (2) Preeclampsia, severe: PLAN: Plan s/p PPD # 2 1. routine post delivery care 2. breast feeding- support given 3. rh positive 4. rubella immune continue labetalol, possible dc today if bps stay WNL
[2024-10-14 09:55] VITALS: BP 130/63; PULSE 77; RESP 18; TEMP 36.5; O2SAT 97
[2024-10-14] MEDS: Sertraline 50 MG Tablet 75 MG PO (10:35)
[2024-10-14] MEDS: Senna/Docusate Sodium 1 Tablet PO (10:35)
--- NOTE | 2024-10-14 12:00 | CASEMGMT ---
Social Work Assessment Labor and Delivery Unit Patient Address: [facility] [address] [place] [address] Phone number: [phone] Date of Referral: 10/13/24 Time of Referral:? 724 Referred By: Dr. Mckenna Date of Intervention: ??10/14/24 Time of Intervention:? 1100 Reason for Referral:? mental health Sw completed chart review and acknowledges social work consult due to maternal mental health history. Sw presented to bedside and introduced self to mother of baby (QUIN- [place]) and father of baby (FOB- [place]). Sw explained reason for sw involvement and completed psychosocial assessment. History obtained from: medical records, MOB and FOB? Household composition: Currently residing in the family home is MOB, FOB and baby when ready for discharge. Parents deny any issues or concerns with current residence, stating that it is safe and secure. Patient's parent/guardian status:? ?QUIN states that she and UNIQUE have been together for 5 years after having family friends in common with each other. This is first baby for both parents. NO concerns reported of domestic violence or intimate partner violence. Medical History: ?QUIN is 24 year old female who is 1, para 0- now 1 following labor and delivery of . QUIN states that she and UNIQUE had started to engage with IVF treatments and services due to experiencing infertility, but then she got on her own right before their first IUI. QUIN received routine care during with [facility]. QUIN presented to labor and delivery unit following appointment due to concerns for pre-eclampsia. QUIN then delivered baby following an induction of labor via vaginal delivery at 38 weeks gestation. Baby girl, named Katie Ny, was born on 10/12/24 weighing 5lb 14oz with apgars of 7 and 9 at one and five minutes of life, respectfully. QUIN states that she is breast feeding and it is going well. Baby will be followed by Dr. Simpson for pediatrics. Educational Status:? Both parents graduated from high school. QUIN has her Bachelors degree. Neither parent struggled with reading, comprehension or learning. Financial Status: UNIQUE is employed at [employer] and is able to have some time off now that baby has been born. 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 Supplies: Parents state that they have everything they need for baby, and then some. Parents have obtained: car seat, safe sleep space, clothes, diapers and wipes. Childcare/Caregiver(s):? QUIN will be the primary caregiver to baby along with FOPadma when he is not working. When both parents work they have several family members who are able to provide childcare. Transportation:?Both parents have their drivers license and reliable means of transportation. No barriers. Programs/Agencies Involved: QUIN denies being connected to any community agencies that assist them financially at this time. ??? Children Services/Legal Issues:??No history of children services involvement. NO issues or concerns warranting referral to be made at this time. ? Behavioral Health Issues: ??Mental Health History:?FOB denies mental health history. QUIN states that she has always struggled with anxiety and is prescribed zoloft to help her manage her mental health symptoms. MOB states that a lot of her anxiety heightened when they were trying to get .MOB states that now that she was able to get and had baby she does not have any anxiety symptoms or any concerns regarding her mental health. MOB reports to feeling emeka and so much happiness. ?? Substance Use History:?Parents deny substance use prior to and during . ? Family History: Parents deny family history of substance use/ addiction or significant mental health diagnoses. ? Drug Screens: No drug screens observed during chart review. Family/Social Stressors:? Parents deny any issues, concerns or stressors. Support Systems: Maternal grandparents are the family's biggest supports at this time. Depression/Shaken Baby/Safe Sleeping: Wendy educated parents on signs and symptoms of baby blues and mood and anxiety disorders to be mindful of during this period. 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 MOB states that she also discussed these issues with her doctor and her OBGYN to ensure that she had a plan regarding her mental health going into her period. MOB states that she is thankful she is feeling so good and happy. FOB states that if MOB were to struggle with her mental health during this period he would be able to recognize that and would know how to help and support MOB. Wendy educated parents on shaken baby prevention and ABCs of safe sleep. Parents express understanding. ASSESSMENT:? MOB and baby admitted following labor and delivery. MOB was welcoming of sw to come into room and complete assessment. MOB was sitting in [place] feeding baby and FOB was sitting comfortably on the couch. Both parents were engaged throughout conversation and both answered questions asked. QUIN has mental health history positive for anxiety and is prescribed medication to assist managing her anxious symptoms. QUIN states that she has always struggled with anxiety, and it does not revolve around one specific thing, but did intensify while she was experiencing infertility. MOB appeared to be in happy spirits, she made and maintained eye contact and appears to have positive support found in FOB. Parents have obtained all necessary baby supplies and have natural supports found in family members. PLAN:?? No other services requested or indicated. MOB and baby to be discharged when medically ready. Parents were provided literature regarding: signs and symptoms of baby blues and mood and anxiety disorders, Help Me Grow, shaken baby prevention, ABCs of safe sleep and a list of county resources that are available for them should any needs present themselves. Rosendo Solorzano, INFORMATION SYSTEMS ANALYST, PSYCH NP
[2024-10-14 13:29] VITALS: BP 132/80; PULSE 73; RESP 16; TEMP 36.5; O2SAT 96
[2024-10-14] MEDS: Benzocaine/Lanolin/Aloe Vera 85 GM Spray 1 SPRAY TOPICAL (13:46)
[2024-10-14 15:48] VITALS: BP 140/75; PULSE 79; RESP 18; TEMP 36.8; O2SAT 97
--- NOTE | 2024-10-22 04:51 | PCM.DC.SUM ---
Providers Date of Admission: 10/11/24 Primary Care Physician: Dr. Meagan Whalen DO Reason For Visit: VAGINAL DELIVERY Diagnosis Discharge Diagnosis (1) Vaginal delivery: Status: Acute Code(s): O80 - Encounter for full-term uncomplicated delivery (2) Preeclampsia, severe: Status: Acute Code(s): O14.10 - Severe pre-eclampsia, unspecified trimester Plan s/p PPD # 2 1. routine post delivery care 2. breast feeding- support given 3. rh positive 4. rubella immune continue labetalol, possible dc today if bps stay WNL Medications at Discharge Home Medications cetirizine 10 mg tablet (Zyrtec) 10 mg PO DAILY allergies 12/27/19 sertraline 50 mg tablet (Zoloft) 75 mg PO DAILY depression 05/27/22 fluticasone propionate 50 mcg/actuation nasal spray,suspension 1 spray intranasal DAILY allergies 03/12/24 multivitamin no.47-iron fum 27 mg-folate no.1 1 mg-dha 300 mg capsule (PNV-DHA) 1 cap PO pegnancy 03/12/24 ondansetron 4 mg disintegrating tablet 4 mg PO Q4H PRN nausea and vomiting #60 tabs 03/24/24 labetalol 100 mg tablet 100 mg PO BID #60 tabs 10/14/24 Hospital Course Operations None Procedures None Summary of Care Provided Hospital Course: patient presented for IOL for severe pree and proceededed to deliver . She a routine recovery post delivery and was stable for discharge to home on PPD 2 on bp meds Weight / BMI Weight Weight: 276 lb 6 oz Body Mass Index (BMI) 53.9 ABG / Lab / Microbiology Data Attestation: I reviewed the patient's lab results. 10/13/24 02:07 10/13/24 02:07 D/C Instructions Discharge Diet: No restrictions May resume sexual activity in: 4-6 weeks Weight Bearing Status: Full weight bearing Call your doctor if your incision/area has: Continuous Slow Oozing, Sudden Increased Bleeding, Increased Pain/ Swelling, Increased Redness and Foul Smelling Discharge Call your doctor if you observe: Fever of 101 or Higher, Inability to urinate, Using more than 1 pad per hour, Shortness of breath, Chest pain and Uncontrolled pain DC O2, CPAP, BIPAP Needs Home O2 Discharge instructions: No Please Follow Up With: Debi Mckenna MD When: Call [phone] to make an appointment with your doctor in 6 weeks. If you had elevated blood pressure or 4th degree laceration, you will need to be seen in 2 weeks. Meaningful Use Info Meaningful Use Meaningful Use Diagnoses (Choose all that apply): None applicable Ischemic Stroke Statin Dosing Therapy Reference: STATIN DOSE THERAPY REFERENCE: * Patients > 75 years receive moderate or high dose statin therapy. * Patients 75 years or YOUNGER should receive HIGH intensity statin dose unless contraindicated. You will be required to document reason for non-treatment if statin daily dose does not meet guidelines. HIGH DOSE STATIN THERAPY DAILY Atorvastatin > than or = to 40 mg Rosuvastatin > than or = to 20 mg Amlodipine + Atorvastatin > than or = to 2.5/40 mg Ezetimibe + Simvastatin 10/80 mg Simvastatin 80mg Discharge Plan Admission Admit Date/Time: 10/11/24 15:38 Attending Provider: Debi Mckenna Primary Care Provider: Meagan Whalen Discharge Orders/Prescriptions Prescriptions: New labetalol 100 mg tablet 100 mg PO BID Qty: 60 12RF No Action cetirizine [Zyrtec] 10 mg tablet 10 mg PO DAILY sertraline [Zoloft] 50 mg tablet 75 mg PO DAILY PNV-DHA 27 mg iron-1 mg -300 mg capsule 1 cap PO fluticasone propionate 50 mcg/actuation spray,suspension 1 spray intranasal DAILY Rx Instructions: administer into each nostril ondansetron 4 mg tablet,disintegrating 4 mg PO Q4H PRN (Reason: nausea and vomiting) Qty: 60 2RF Referrals / Follow Up: Meagan Whalen DO [Primary Care Provider] - Disposition Disposition (needs filled in before D/C Order can be placed): Home, Self Care
== END 2024-10-14 17:40 | disposition home or self-care (01) | DRG 807 ==
PROVIDERS: Admitting Provider Advanced Practice Midwife; PCP Family Medicine; Visit Provider Obstetrics & Gynecology
DX: O14.14 Severe pre-eclampsia complicating childbirth (principal); Z37.0 Single live birth; O99.344 Other mental disorders complicating childbirth; E28.2 Polycystic ovarian syndrome; F32.A Depression, unspecified; O99.214 Obesity complicating childbirth; F41.9 Anxiety disorder, unspecified; J30.2 Other seasonal allergic rhinitis; Z3A.38 38 weeks gestation of pregnancy; O99.820 Streptococcus B carrier state complicating pregnancy; Z80.3 Family history of malignant neoplasm of breast; O99.52 Diseases of the respiratory system complicating childbirth; O99.284 Endocrine, nutritional and metabolic diseases complicating childbirth; O70.0 First degree perineal laceration during delivery; O69.1XX0 Labor and delivery complicated by cord around neck, with compression, not applicable or unspecified
CPT/HCPCS: 59025; 59050; 80053; 82565; 82570; 84156; 84450; 84460; 84550; 85025; 85027; 86780; 86850; 86900; 86901; 88307; 99221; J7120; A4216; G0378; J2405

== ENCOUNTER → 2024-11-23 | Outpatient (CLI) | payer BC, SELFPAY ==
[2024-12-01 09:18] LABS: HPV Reflexed? NOT INDICATED
== END | disposition home or self-care (01) ==
LOC: LABSPEC 13:35
PROVIDERS: PCP Family Medicine; Referring Provider Nurse Practitioner Women's Health; Visit Provider Nurse Practitioner Women's Health
DX: Z12.4 Encounter for screening for malignant neoplasm of cervix (principal)
CPT/HCPCS: 88175; G0145